=== PATIENT | female | born 1985 | race Caucasian/White ===

== ENCOUNTER 2017-02-15 00:41 | Emergency (ER) | payer SELFPAY ==
[~2017-02-15 00:41] MED LIST: ACYC800 PO; ALBU90OI INH; AMIT50 PO; Adipex-P37.5 M1 PO; Amoxicillin500 MG PO; Bactrim Ds Tab1 EACH PO; CEPH500 PO; CODGUAEL PO; CYCL10 PO; DOXY100 PO; HYDACE5 PO; IBUP800 PO; MIRENA IUD; NAPR375 PO; Norco 5-325 Ta1 EACH PO; Percocet 5-3251 EACH PO; Pyridium200 MG PO; RXHYDACE PO; Zofran8 MG PO; Zovirax800 MG PO
[2017-02-15] MEDS ORDERED: Bactrim 400-801 EACH PO (03:23)
== END 2017-02-15 01:10 | disposition left against medical advice (07) ==
LOC: ER 00:41
DX: Z53.21 Procedure and treatment not carried out due to patient leaving prior to being seen by health care provider (principal)

== ENCOUNTER 2017-02-15 01:44 | Emergency (ER) | payer SELFPAY ==
[~2017-02-15] VITALS: Ht 165.1 cm; Wt 77.1 kg
[2017-02-15 02:22] LABS: Source, Urine Clean Catch
[2017-02-15 02:23] LABS: Bilirubin, Urine Neg (Neg); Blood, Urine 2+ (Neg); Glucose Qualitative, Urine Neg (Neg); Ketones, Urine 1+ (Neg); Leukocyte Esterase, Urine 3+ (Neg); Nitrite, Urine Pos (Neg); Protein, Urine 1+ (Neg); Urobilinogen, Urine 2+ (Normal)
[2017-02-15 02:29] LABS: Appearance, Urine Hazy (Clear); Bacteria Many /hpf; Color, Urine Yellow (P-Yellow); Red Blood Cells, Urine Rare /hpf (0-2); Squamous Epithelial Cells Few /hpf (Few)
[2017-02-15] MEDS ORDERED: Bactrim 400-801 EACH PO (03:23)
== END 2017-02-15 03:36 | disposition home or self-care (01) ==
LOC: ER 01:44
PROVIDERS: Emergency Medicine
DX: N39.0 Urinary tract infection, site not specified (principal); K08.89 Other specified disorders of teeth and supporting structures; F17.200 Nicotine dependence, unspecified, uncomplicated
CPT/HCPCS: 81001; 81025; 87077; 87086; 87186; 99283

== ENCOUNTER 2018-02-11 23:49 | Emergency (ER) | payer OTHER ==
[~2018-02-11] VITALS: Ht 165.1 cm; Wt 77.1 kg
[~2018-02-11 23:49] MED LIST changes: +Bactrim 400-801 EACH PO
[2018-02-12] MEDS ORDERED: IBUP600 PO (01:41)
[2018-02-12] MEDS ORDERED: Prednisone50 MG PO (01:41)
== END 2018-02-12 01:54 | disposition home or self-care (01) ==
LOC: ER 23:49
DX: M65.4 Radial styloid tenosynovitis [de Quervain] (principal); F17.200 Nicotine dependence, unspecified, uncomplicated
CPT/HCPCS: 29125; 99283-25